=== PATIENT | male | born 1995 | race Caucasian/White ===

== ENCOUNTER 2018-05-03 18:18 | Inpatient (IN) ==
[2018-05-03 19:23] LABS: Basophils % 0.7 %; Eosinophils # 0.1 K/mcL (0.0-0.6); Eosinophils % 2.4 %; Hemoglobin 6.8 g/dL (12.9-16.9); Immature Granulocytes % 0.3 % (0-4); Lymphocytes # 1.6 K/mcL (0.6-4.6); Lymphocytes % 27.9 %; Mean Corpuscular HGB Conc 26.2 g/dL (31.6-35.5); Mean Corpuscular Hemoglobin 17.3 pg (28.0-33.3); Mean Corpuscular Volume 66.2 fL (83.0-100.0); Monocytes # 0.3 K/mcL (0.0-1.3); Monocytes % 5.9 %; Neutrophils # 3.6 K/mcL (1.6-8.9); Platelet Count 152 K/mcL (140-400); Red Blood Count 3.93 M/mcL (4.19-5.50); Red Cell Distribution Width 21.1 % (11.5-14.5); Segmented Neutrophils % 62.8 %
[2018-05-03] MEDS ORDERED: 0.9 % Sodium Chloride 1,000 ML IVC ONE (19:24)
[2018-05-03 19:32] LABS: Hypochromasia Present (Not Present); Microcytosis Present (Not Present)
[2018-05-03 19:46] LABS: BUN/Creatinine Ratio 17 (6-26); Blood Urea Nitrogen 13 mg/dL (6-20); Calcium 9.1 mg/dL (8.6-10.3); Carbon Dioxide 24 mEq/L (23-29); Chloride 107 mEq/L (98-107); Glucose 109 mg/dL (70-105); Osmolality,Calculated 291 (280-300); Potassium 3.7 mEq/L (3.5-5.1); Sodium 140 mEq/L (136-145); eGFR For African Americans > 60 (> 60); eGFR For Non-African Americans > 60 (> 60)
[2018-05-03] MEDS ORDERED: Isovue-370 500 ML INFUS..BTL IV ONE (19:55)
[2018-05-03] MEDS ORDERED: 0.9 % Sodium Chloride 500 ML ONE (20:18)
--- NOTE | 2018-05-03 20:29 | Emergency Department Note ---
Disposition Clinical Impression: Acute urinary retention Anemia Qualifiers: Anemia type: unspecified type Qualified Code(s): D64.9 - Anemia, unspecified Disposition: Admitted As Inpatient Condition: Fair Referrals: Raiza Lentz CNP [Primary Care Provider] - Time of Disposition: 22:27 General Adult HPI - General Chief complaint: ED Recheck/Abnormal Lab/Rx Stated complaint: Low hemoglobin Time Seen by Provider: 05/03/18 18:26 Source: patient Mode of arrival: ambulatory Limitations: no limitations Nursing Notes Reviewed: Yes Vital Signs Reviewed: Yes - History of Present Illness HPI Narrative: Patient is a 22-year-old male who presents to [facility] ED with a chief complaint of low hemoglobin. States he had been in to the primary care's office today for possible urinary tract infection. We got some blood work and then called them saying his hemoglobin was 7.5. Mom states he has had about a week of difficulty with urination with urinary retention. Patient states his abdomen feels really full. Denies any nausea, vomiting, fever or chills. He does feel generally fatigued. He has never had any issues with bleeding in the past and has not required any blood transfusions previously. Past medical history significant for autism and depression. No new medications. Onset (ago): Just [employer] Pain Scale: 0 Improves with: nothing Worsens with: nothing Associated symptoms: Reports: weakness. Denies: confusion, chest pain, cough, fever/chills, malaise, nausea/vomiting, shortness of breath Treatments Prior to Arrival: none - Related Data Home Medications Medication Instructions Recorded Confirmed Albuterol Sulfate [Albuterol 2 puff IH Q4-6H PRN 05/03/18 05/03/18 Inhaler] Aripiprazole [Abilify] 5 mg PO DAILY 05/03/18 05/03/18 Methylphenidate HCl [Concerta] 18 mg PO DAILY 05/03/18 05/03/18 Omeprazole [PriLOSEC] 40 mg PO DAILY 05/03/18 05/03/18 Ondansetron ODT [Zofran ODT] 4 mg SL DAILY PRN 05/03/18 05/03/18 Sertraline [Zoloft] 200 mg PO DAILY 05/03/18 05/03/18 clonazePAM [Clonazepam] 0.5 mg PO BID 05/03/18 05/03/18 Allergies Allergy/AdvReac Type Severity Reaction Status Date / Time oxcarbazepine AdvReac See Verified 06/02/17 10:55 [From Pinky] Comments All systems ED: reviewed and negative except as stated. Past Medical History - Past Medical History Attestation: Yes The following information was validated with the patient. Source: patient Medical history: Reports: other Surgical history: Reports: non-contributory Psychiatric history: Reports: anxiety, ADHD - Social History Smoking Status: Never smoker Smokeless Tobacco Status: No Alcohol use: Reports: none Drug use: Reports: none Physical Exam - General Limitations: no limitations General appearance: alert, in no apparent distress - Head Head exam: atraumatic, normocephalic, normal inspection - Eye Eye exam: Present: normal appearance, PERRL, EOMI - ENT ENT exam: normal exam, normal oropharynx, mucous membranes moist - Neck Neck exam: Present: normal inspection, full ROM, trachea midline - Chest Chest inspection: Present: normal inspection, symmetric chest wall rise - Respiratory Respiratory exam: Present: normal lung sounds bilaterally - Cardiovascular Cardiovascular exam: Present: normal rhythm, tachycardia - Abdominal Exam Abdominal exam: Present: soft, tenderness, normal bowel sounds. Absent: distention, guarding, rebound, rigidity Abdominal tenderness: Present: diffuse, mild - Extremities Exam Extremities exam: Present: normal inspection, full ROM. Absent: tenderness, pedal edema - Back Exam Back exam: Present: normal inspection, full ROM. Absent: tenderness - Neurological Exam Neurological exam: Present: alert, oriented X3 - Psychiatric Psychiatric exam: Present: normal affect, normal mood - Skin Skin exam: Present: warm, dry, intact, normal color Course Course Narrative: Patient seen and examined. Low hemoglobin reported. We will repeat the lab work. Patient is mildly tachycardic on my examination. 1 L of IV fluids ordered. We will get a type and screen. We will do a rectal exam to check for rectal bleeding. Since patient has been having abdominal discomfort along with some urinary retention, we will go ahead and check a urine analysis and do a CT of his abdomen and pelvis with IV contrast. - Reevaluation(s) Reevaluation #1: Hemoccult negative. CT scan unremarkable. Hemoglobin of 6.8. We will send for crossmatch of 1 unit to be given. Due to patient's urinary retention, he was straight catheterized with 450 mL of urine returned. Urine analysis sent. Will admit for anemia workup. I discussed with the hospitalist Dr. Sweeney who has accepted patient for admission. He would also like iron studies as well as B12 and folate ordered. Time: 20:30 Vital Signs Temperature 98.8 F 05/03/18 18:22 Pulse Rate 92 05/03/18 18:22 Respiratory Rate 18 05/03/18 18:22 Blood Pressure 128/75 05/03/18 18:22 O2 Sat by Pulse Oximetry 98 05/03/18 18:22 Temperature 98.7 F 05/03/18 22:15 Pulse Rate 86 05/03/18 22:15 Respiratory Rate 16 05/03/18 22:15 Blood Pressure 146/72 05/03/18 22:15 O2 Sat by Pulse Oximetry 98 05/03/18 22:15 Oxygen Delivery Oxygen Delivery Room Air Medical Decision Making - Medical Records Medical records reviewed: Yes I reviewed the patient's medical records. - Lab Data Lab results reviewed: Yes I reviewed the patient's lab results. Result diagrams: 05/03/18 19:05 05/03/18 19:05 Lab Results 05/03/18 05/03/18 05/03/18 Range/Units 19:00 19:05 19:05 WBC 5.7 (4.3-11.1) K/mcL RBC 3.93 L (4.19-5.50) M/mcL Hgb 6.8 L (12.9-16.9) g/dL Hct 26.0 L (37.5-50.1) % MCV 66.2 L (83.0-100.0) fL MCH 17.3 L (28.0-33.3) pg MCHC 26.2 L (31.6-35.5) g/dL RDW 21.1 H (11.5-14.5) % Plt Count 152 (140-400) K/mcL MPV TNP Immature Gran % 0.3 (0-4) % Seg Neutrophils % 62.8 % Lymphocytes % 27.9 % Monocytes % 5.9 % Eosinophils % 2.4 % Basophils % 0.7 % Neutrophils # 3.6 (1.6-8.9) K/mcL Lymphocytes # 1.6 (0.6-4.6) K/mcL Monocytes # 0.3 (0.0-1.3) K/mcL Eosinophils # 0.1 (0.0-0.6) K/mcL Basophils # 0.0 (0.0-0.2) K/mcL Hypochromasia Present A (Not Present) Microcytosis Present A (Not Present) Sodium 140 (136-145) mEq/L Potassium 3.7 (3.5-5.1) mEq/L Chloride 107 (98-107) mEq/L Carbon Dioxide 24 (23-29) mEq/L BUN 13 (6-20) mg/dL Creatinine 0.78 (0.70-1.30) mg/dL Est GFR ( Amer) > 60 (> 60) Est GFR (Non-Af Amer) > 60 (> 60) BUN/Creatinine Ratio 17 (6-26) Glucose 109 H (70-105) mg/dL Calculated Osmolality 291 (280-300) Calcium 9.1 (8.6-10.3) mg/dL Iron 21 L (65-175) mcg/dL % Saturation 4 L (20-55) % Transferrin 384 H (203-362) mg/dL Vitamin B12 (250-1100) pg/mL Folate (3.0-16.0) ng/mL Urine Color (Yellow) Urine Clarity (Clear) Urine pH (5.0-8.0) pH Units Ur Specific [place] (1.010-1.025) Urine Protein (Neg-Trace) mg/dL Urine Glucose (UA) (Normal) mg/dL Urine Ketones (Negative) mg/dL Urine Blood (Negative) Urine Nitrite (Negative) Urine Bilirubin (Negative) Urine Urobilinogen (Normal) mg/dL Ur Leukocyte Esterase (Negative) Urine Microscopic RBC (0-3) per hpf Urine Microscopic WBC (0-3) per hpf Ur Squamous Epith Cells (None-Few) per lpf Urine Bacteria (None-Few) per hpf Hyaline Casts (None-Few) per lpf Ur Culture Indicated? (NO) Stool Occult Bld Scrn (Negative) Blood Type A NEGATIVE Antibody Screen NEGATIVE Crossmatch See Detail 05/03/18 05/03/18 05/03/18 Range/Units 20:00 20:54 20:56 WBC (4.3-11.1) K/mcL RBC (4.19-5.50) M/mcL Hgb (12.9-16.9) g/dL Hct (37.5-50.1) % MCV (83.0-100.0) fL MCH (28.0-33.3) pg MCHC (31.6-35.5) g/dL RDW (11.5-14.5) % Plt Count (140-400) K/mcL MPV Immature Gran % (0-4) % Seg Neutrophils % % Lymphocytes % % Monocytes % % Eosinophils % % Basophils % % Neutrophils # (1.6-8.9) K/mcL Lymphocytes # (0.6-4.6) K/mcL Monocytes # (0.0-1.3) K/mcL Eosinophils # (0.0-0.6) K/mcL Basophils # (0.0-0.2) K/mcL Hypochromasia (Not Present) Microcytosis (Not Present) Sodium (136-145) mEq/L Potassium (3.5-5.1) mEq/L Chloride (98-107) mEq/L Carbon Dioxide (23-29) mEq/L BUN (6-20) mg/dL Creatinine (0.70-1.30) mg/dL Est GFR ( Amer) (> 60) Est GFR (Non-Af Amer) (> 60) BUN/Creatinine Ratio (6-26) Glucose (70-105) mg/dL Calculated Osmolality (280-300) Calcium (8.6-10.3) mg/dL Iron (65-175) mcg/dL % Saturation (20-55) % Transferrin (203-362) mg/dL Vitamin B12 494 (250-1100) pg/mL Folate 16.3 H (3.0-16.0) ng/mL Urine Color Dark Yellow (Yellow) Urine Clarity Clear (Clear) Urine pH 6.5 (5.0-8.0) pH Units Ur Specific [place] > 1.030 H (1.010-1.025) Urine Protein Negative (Neg-Trace) mg/dL Urine Glucose (UA) Normal (Normal) mg/dL Urine Ketones Negative (Negative) mg/dL Urine Blood Negative (Negative) Urine Nitrite Positive A (Negative) Urine Bilirubin Negative (Negative) Urine Urobilinogen Normal (Normal) mg/dL Ur Leukocyte Esterase Negative (Negative) Urine Microscopic RBC 0-3 (0-3) per hpf Urine Microscopic WBC 0-3 (0-3) per hpf Ur Squamous Epith Cells None Seen (None-Few) per lpf Urine Bacteria None Seen (None-Few) per hpf Hyaline Casts None Seen (None-Few) per lpf Ur Culture Indicated? YES A (NO) Stool Occult Bld Scrn Negative (Negative) Blood Type Antibody Screen Crossmatch - Radiology Data Radiology results reviewed: Yes I reviewed the patient's radiology results. Abdomen/Pelvis CT 05/03/18 19:55 IMPRESSION: No definite acute finding in the abdomen or pelvis. Specifically, the appendix is normal. Mild fatty infiltration of the liver. Borderline hepatosplenomegaly. D/ / Timothy Dobbins MD / Timothy Dobbins MD Interpreting Provider: Timothy Dobbins MD
[2018-05-03] MEDS ORDERED: *HR* LORazepam 2 MG/ML VIAL IVP ONE (20:38)
[2018-05-03 21:11] LABS: Bilirubin,Urine Negative (Negative); Blood,Urine Negative (Negative); Clarity,Urine Clear (Clear); Glucose,Urine (UA) Normal (Normal); Ketones,Urine Negative (Negative); Leukocyte Esterase,Urine Negative (Negative); Nitrite,Urine Positive (Negative); PH,Urine 6.5 pH Units (5.0-8.0); Protein,Urine Negative (Neg-Trace); Specific Gravity,Urine > 1.030 (1.010-1.025); Urobilinogen,Urine Normal (Normal)
[2018-05-03 21:14] LABS: Bacteria,Urine None Seen per hpf (None-Few); Hyaline Casts,Urine None Seen per lpf (None-Few); RBC,Urine 0-3 per hpf (0-3); Squamous Epithelial Cell,Urine None Seen per lpf (None-Few); WBC,Urine 0-3 per hpf (0-3)
[2018-05-03 21:16] LABS: Color,Urine Dark Yellow (Yellow)
[2018-05-03 21:18] LABS: % Iron Saturation 4 % (20-55); Iron 21 mcg/dL (65-175); Transferrin 384 mg/dL (203-362)
--- NOTE | 2018-05-03 21:41 | Emergency Department Note ---
Disposition Clinical Impression: Acute urinary retention Anemia Qualifiers: Anemia type: unspecified type Qualified Code(s): D64.9 - Anemia, unspecified Disposition: Admitted As Inpatient Condition: Fair General Adult HPI - General Chief complaint: ED Recheck/Abnormal Lab/Rx Stated complaint: Low hemoglobin Time Seen by Provider: 05/03/18 18:26 Source: patient Mode of arrival: ambulatory Limitations: no limitations Nursing Notes Reviewed: Yes Vital Signs Reviewed: Yes - History of Present Illness Pain Scale: 0 Improves with: nothing Worsens with: nothing Associated symptoms: Reports: weakness. Denies: confusion, chest pain, cough, fever/chills, malaise, nausea/vomiting, shortness of breath Treatments Prior to Arrival: none - Related Data Home Medications Medication Instructions Recorded Confirmed Albuterol Sulfate [Albuterol 2 puff IH Q4-6H PRN 05/03/18 05/03/18 Inhaler] Aripiprazole [Abilify] 5 mg PO DAILY 05/03/18 05/03/18 Methylphenidate HCl [Concerta] 18 mg PO DAILY 05/03/18 05/03/18 Omeprazole [PriLOSEC] 40 mg PO DAILY 05/03/18 05/03/18 Ondansetron ODT [Zofran ODT] 4 mg SL DAILY PRN 05/03/18 05/03/18 Sertraline [Zoloft] 200 mg PO DAILY 05/03/18 05/03/18 clonazePAM [Clonazepam] 0.5 mg PO BID 05/03/18 05/03/18 Allergies Allergy/AdvReac Type Severity Reaction Status Date / Time oxcarbazepine AdvReac See Verified 06/02/17 10:55 [From Trileptal] Comments Past Medical History - Past Medical History Medical history: Reports: other Surgical history: Reports: non-contributory Psychiatric history: Reports: anxiety, ADHD - Social History Smoking Status: Never smoker Smokeless Tobacco Status: No Alcohol use: Reports: none Drug use: Reports: none Physical Exam - General Limitations: no limitations General appearance: alert, in no apparent distress Course Vital Signs Temperature 98.8 F 05/03/18 18:22 Pulse Rate 92 05/03/18 18:22 Respiratory Rate 18 05/03/18 18:22 Blood Pressure 128/75 05/03/18 18:22 O2 Sat by Pulse Oximetry 98 05/03/18 18:22 Temperature 98.5 F 05/03/18 21:45 Pulse Rate 95 05/03/18 21:45 Respiratory Rate 16 05/03/18 21:45 Blood Pressure 110/62 05/03/18 21:45 O2 Sat by Pulse Oximetry 97 05/03/18 21:45 Oxygen Delivery Oxygen Delivery Room Air Medical Decision Making - Lab Data Result diagrams: 05/03/18 19:05 05/03/18 19:05 Lab Results 05/03/18 05/03/18 05/03/18 Range/Units 19:00 19:05 19:05 WBC 5.7 (4.3-11.1) K/mcL RBC 3.93 L (4.19-5.50) M/mcL Hgb 6.8 L (12.9-16.9) g/dL Hct 26.0 L (37.5-50.1) % MCV 66.2 L (83.0-100.0) fL MCH 17.3 L (28.0-33.3) pg MCHC 26.2 L (31.6-35.5) g/dL RDW 21.1 H (11.5-14.5) % Plt Count 152 (140-400) K/mcL MPV TNP Immature Gran % 0.3 (0-4) % Seg Neutrophils % 62.8 % Lymphocytes % 27.9 % Monocytes % 5.9 % Eosinophils % 2.4 % Basophils % 0.7 % Neutrophils # 3.6 (1.6-8.9) K/mcL Lymphocytes # 1.6 (0.6-4.6) K/mcL Monocytes # 0.3 (0.0-1.3) K/mcL Eosinophils # 0.1 (0.0-0.6) K/mcL Basophils # 0.0 (0.0-0.2) K/mcL Hypochromasia Present A (Not Present) Microcytosis Present A (Not Present) Sodium 140 (136-145) mEq/L Potassium 3.7 (3.5-5.1) mEq/L Chloride 107 (98-107) mEq/L Carbon Dioxide 24 (23-29) mEq/L BUN 13 (6-20) mg/dL Creatinine 0.78 (0.70-1.30) mg/dL Est GFR ( Amer) > 60 (> 60) Est GFR (Non-Af Amer) > 60 (> 60) BUN/Creatinine Ratio 17 (6-26) Glucose 109 H (70-105) mg/dL Calculated Osmolality 291 (280-300) Calcium 9.1 (8.6-10.3) mg/dL Iron 21 L (65-175) mcg/dL % Saturation 4 L (20-55) % Transferrin 384 H (203-362) mg/dL Urine Color (Yellow) Urine Clarity (Clear) Urine pH (5.0-8.0) pH Units Ur Specific [place] (1.010-1.025) Urine Protein (Neg-Trace) mg/dL Urine Glucose (UA) (Normal) mg/dL Urine Ketones (Negative) mg/dL Urine Blood (Negative) Urine Nitrite (Negative) Urine Bilirubin (Negative) Urine Urobilinogen (Normal) mg/dL Ur Leukocyte Esterase (Negative) Urine Microscopic RBC (0-3) per hpf Urine Microscopic WBC (0-3) per hpf Ur Squamous Epith Cells (None-Few) per lpf Urine Bacteria (None-Few) per hpf Hyaline Casts (None-Few) per lpf Ur Culture Indicated? (NO) Stool Occult Bld Scrn (Negative) Blood Type A NEGATIVE Antibody Screen NEGATIVE Crossmatch See Detail 05/03/18 05/03/18 Range/Units 20:00 20:54 WBC (4.3-11.1) K/mcL RBC (4.19-5.50) M/mcL Hgb (12.9-16.9) g/dL Hct (37.5-50.1) % MCV (83.0-100.0) fL MCH (28.0-33.3) pg MCHC (31.6-35.5) g/dL RDW (11.5-14.5) % Plt Count (140-400) K/mcL MPV Immature Gran % (0-4) % Seg Neutrophils % % Lymphocytes % % Monocytes % % Eosinophils % % Basophils % % Neutrophils # (1.6-8.9) K/mcL Lymphocytes # (0.6-4.6) K/mcL Monocytes # (0.0-1.3) K/mcL Eosinophils # (0.0-0.6) K/mcL Basophils # (0.0-0.2) K/mcL Hypochromasia (Not Present) Microcytosis (Not Present) Sodium (136-145) mEq/L Potassium (3.5-5.1) mEq/L Chloride (98-107) mEq/L Carbon Dioxide (23-29) mEq/L BUN (6-20) mg/dL Creatinine (0.70-1.30) mg/dL Est GFR ( Amer) (> 60) Est GFR (Non-Af Amer) (> 60) BUN/Creatinine Ratio (6-26) Glucose (70-105) mg/dL Calculated Osmolality (280-300) Calcium (8.6-10.3) mg/dL Iron (65-175) mcg/dL % Saturation (20-55) % Transferrin (203-362) mg/dL Urine Color Dark Yellow (Yellow) Urine Clarity Clear (Clear) Urine pH 6.5 (5.0-8.0) pH Units Ur Specific [place] > 1.030 H (1.010-1.025) Urine Protein Negative (Neg-Trace) mg/dL Urine Glucose (UA) Normal (Normal) mg/dL Urine Ketones Negative (Negative) mg/dL Urine Blood Negative (Negative) Urine Nitrite Positive A (Negative) Urine Bilirubin Negative (Negative) Urine Urobilinogen Normal (Normal) mg/dL Ur Leukocyte Esterase Negative (Negative) Urine Microscopic RBC 0-3 (0-3) per hpf Urine Microscopic WBC 0-3 (0-3) per hpf Ur Squamous Epith Cells None Seen (None-Few) per lpf Urine Bacteria None Seen (None-Few) per hpf Hyaline Casts None Seen (None-Few) per lpf Ur Culture Indicated? YES A (NO) Stool Occult Bld Scrn Negative (Negative) Blood Type Antibody Screen Crossmatch Critical Care Time Critical Care Time: Yes Total Critical Care Time: 35 Attestation: Critical care performed: Time is exclusive of separately billable procedures. Time includes: direct patient care, patient reassessment, coordination of patient care, interpretation of data (laboratory data, radiology data, and respiratory data), review of patient's medical records, medical consultation and documentation of patient care. Procedures included in critical care time: Procedures excluded from critical care time: Attestation Statement - Attestation Attestation: IJakob MD, personally evaluated this patient and discussed their management with the resident physician. I reviewed the resident's note and agree with the documented findings, medical decision making, and plan of care. 22-year-old male presents to the emergency department for a low hemoglobin. Patient has had some pelvic and lower abdominal pressure and difficulty with urination recently. He saw his PCP today who obtained some lab work and he was found to have a hemoglobin of 7.5 no prior history of anemia. No obvious bleeding sources. No gross hematuria. No melena, hematemesis, or hematochezia. No abnormal bleeding or bruising. On examination patient is a well-developed obese young male in no acute distress. He is alert and oriented 3. There is no cyanosis or diaphoresis. Breath sounds are clear and equal bilaterally. Heart regular rate and rhythm. Abdomen is soft with normal bowel sounds. Mild suprapubic and lower abdominal tenderness. No numbness. Labs reviewed. Hemoglobin here 6.8. CT of the abdomen and pelvis shows no acute abnormality. Transfusion of packed red blood cells was initiated here in the emergency department. The hospitalist, Dr. Sweeney, was consulted and accepted admission of the patient.
[2018-05-03 21:56] LABS: Folate 16.3 ng/mL (3.0-16.0)
[2018-05-03] MEDS ORDERED: Acetaminophen 325 MG TABLET PO PRN (22:36)
[2018-05-03] MEDS ORDERED: Naloxone 0.4 MG/ML INJ IVP PRN (22:36)
--- NOTE | 2018-05-04 00:02 | Internal Med History&Physical ---
Date of Encounter: 05/04/18 Time of Encounter: 21:30 Internal Medicine - H&P: HPI Admitted From: Home Plans for Post Hospital Care: Home History of present illness: Mr. Robles is a 22 year old male Patient presented to his primary care physician earlier today because he has had increased frequency of urination, but difficulty with voiding. He has also been complaining of lower abdominal pain for the last few days. He describes the pain as pressure but does not have burning when he does urinate. Lab work performed at the patient's PCP showed a hemoglobin level of 7.5. He was notified and recommended to be taken to the emergency room for further evaluation. He has no known history of bleeding disorders, and he has never had history with anemia. He denies family history of anemia as well. His mother is at bedside who confirmed this. He denies nausea, but has had vomiting about a week ago but denies there being any sign of blood in his vomit. He currently is not nauseous denies diarrhea and constipation denies bloody bowel movements and denies chest pain. In the ER bladder scan performed showed that he was retaining 450 mL of urine, straight catheter was performed and his abdominal pain improved. The urine was sent for urinalysis, and it was negative for blood and leukocytic esterase as well as bacteria but was positive for nitrites. Rectal exam performed in the emergency room was also negative for blood. Repeat CBC in the ER showed a hemoglobin of 6.8 with MCV of 66.2 and red cell distribution width of 21.1. Autonomic cytology indicated microcytosis and hypochromasia. Peripheral smear on the sample will be performed on Sunday as pathology is not available over the weekend. Patient was typed and screened and 1 unit of PRBCs was ordered and transfusion was initiated. He will be admitted for anemia workup and treatment for his possible urinary tract infection. Past Med Surg Social Fam HX - Past Medical History Medical history: other Additional medical history: autism, hiatal hernia, depression, anxiety, adhd. Psychiatric history: anxiety, ADHD - Past Surgical History Surgical History: non-contributory Additional surgical history: tonsils and adnoids, hiatal hernia that hasn't been operated on - Social History Smoking Status: Never smoker Smokeless Tobacco Status: No Alcohol use: none Drug use: none Internal Medicine - H&P: Meds Albuterol Sulfate [Albuterol Inhaler] 2 puff IH Q4-6H PRN 05/03/18 [History] Aripiprazole [Abilify] 5 mg PO DAILY 05/03/18 [History] Methylphenidate HCl [Concerta] 18 mg PO DAILY 05/03/18 [History] Omeprazole [PriLOSEC] 40 mg PO DAILY 05/03/18 [History] Ondansetron ODT [Zofran ODT] 4 mg SL DAILY PRN 05/03/18 [History] Sertraline [Zoloft] 200 mg PO DAILY 05/03/18 [History] clonazePAM [Clonazepam] 0.5 mg PO BID 05/03/18 [History] 3 Allergy/AdvReac Type Severity Reaction Status Date / Time oxcarbazepine AdvReac See Verified 06/02/17 10:55 [From Trileptal] Comments All Systems PM: A 10-system review of systems was performed and is negative for pertinent findings except as documented above in the HPI. - Constitutional Vitals: Temp Pulse Resp BP Pulse Ox 98.9 F 95 16 129/69 98 05/03/18 23:39 05/03/18 23:39 05/03/18 23:39 05/03/18 23:39 05/03/18 23:39 General appearance: Present: A&O X 3, pleasant, no acute distress - Head Head exam: Present: normal inspection - Eye Eye exam: Present: EOMI, normal appearance - Respiratory Respiratory exam: Present: CTAB. Absent: respiratory distress, wheezes - Cardiovascular Cardiovascular exam: Present: RRR. Absent: diastolic murmur, systolic murmur - GI/Abdominal GI/Abdominal exam: Present: normal bowel sounds. Absent: distended, tenderness - Extremities Exam Extremities exam: Present: full ROM, warm. Absent: tenderness - Neurological Exam Neurological exam: Present: oriented X3, no focal deficits, strengths equal and symetr throughout. Absent: speech deficit - Skin Skin exam: Present: dry, warm. Absent: erythema, petechiae, rash Internal Med - H&P Results - Labs CBC & Chem 7: 05/04/18 04:52 05/04/18 04:52 - Assessment and plan (1) Anemia Current Visit: Yes Status: Acute Assessment and plan: No known history of anemia, no obvious signs of bleeding. Preliminary iron studies show low iron and low MCV. Could be related to iron deficiency. Awaiting remaining iron studies. Negative stool blood test, no blood in urine. No recent injury. Follow up iron studies Transfused 1 unit pRBCs, rechecking cbc in the morning. Consider additional pRBCs if not improving. Follow up peripheral smear. Qualifiers: Anemia type: iron deficiency Qualified Code(s): D50.9 - Iron deficiency anemia, unspecified (2) Acute urinary retention Current Visit: Yes Status: Acute Assessment and plan: Likely secondary to urinary tract infection. Improved after straight cath in ER , 450ml out. Monitor ins and outs. Urine culture sent, follow up results. Start ceftriaxone, as nitrites were positive. Repeat bladder scan if low urine output. (3) Urinary tract infection Current Visit: Yes Status: Acute Assessment and plan: Likely cause of urinary retention. Cultures pending. Start ceftriaxone. Monitor vitals. Qualifiers: Qualified Code(s): N39.0 - Urinary tract infection, site not specified (4) Autism Current Visit: Yes Status: Acute Assessment and plan: Stable, no change in management. (5) Thrombocytopenia Current Visit: Yes Status: Acute Assessment and plan: Patient's repeat labs in the morning show low platelets of 93, down from 152. Patient did not receive a dose of heparin last night. This occurred after a transfusion, could be lab error, as we would not expect this result after a transfusion. Hemoglobin did improve however. Recheck with additional cbc draw today. (6) DVT prophylaxis Current Visit: Yes Status: Acute Assessment and plan: SCDs - Time Spent With Patient Total time spent is greater than 50% in coordination of care (as documented) at patient's floor/unit and/or counseling patient: Greater than 35 minutes
[2018-05-04] MEDS: cefTRIAXone 1,000 MG in Water for inj. (sterile) 20 ML 10 ML IVP SCH ×2 (02:44→08:30)
[2018-05-04 05:15] LABS: Hematocrit 25.9 % (37.5-50.1); Immature Granulocytes % 0.2 % (0-4)
[2018-05-04 05:16] LABS: Hemoglobin 7.1 g/dL (12.9-16.9); Mean Corpuscular HGB Conc 27.4 g/dL (31.6-35.5); Mean Corpuscular Hemoglobin 18.6 pg (28.0-33.3); Red Blood Count 3.81 M/mcL (4.19-5.50); Red Cell Distribution Width 21.2 % (11.5-14.5); Segmented Neutrophils % 55.7 %
[2018-05-04 05:17] LABS: Basophils % 0.6 %; Eosinophils # 0.1 K/mcL (0.0-0.6); Eosinophils % 1.8 %; Lymphocytes # 1.7 K/mcL (0.6-4.6); Lymphocytes % 34.2 %; Monocytes # 0.4 K/mcL (0.0-1.3); Monocytes % 7.5 %
[2018-05-04 05:26] LABS: BUN/Creatinine Ratio 13 (6-26); Blood Urea Nitrogen 9 mg/dL (6-20); Calcium 8.9 mg/dL (8.6-10.3); Carbon Dioxide 22 mEq/L (23-29); Chloride 110 mEq/L (98-107); Glucose 94 mg/dL (70-105); Osmolality,Calculated 288 (280-300); Potassium 3.8 mEq/L (3.5-5.1); Sodium 140 mEq/L (136-145); eGFR For African Americans > 60 (> 60); eGFR For Non-African Americans > 60 (> 60)
[2018-05-04 05:27] LABS: Neutrophils # 2.7 K/mcL (1.6-8.9); Platelet Count 93 K/mcL (140-400)
[2018-05-04] MEDS ORDERED: *HR* Heparin 5,000 UNIT/ML VIAL SQ SCH (06:00)
[2018-05-04 06:03] LABS: Anisocytosis 2+ (Not Present); Hypochromasia Present (Not Present); Microcytosis Present (Not Present); Platelet Estimate Decreased (Normal); Poikilocytosis 1+ (Not Present)
[2018-05-04 06:05] LABS: Ferritin < 8 ng/mL (20-250)
[2018-05-04 07:19] LABS: Basophils % 0.7 %; Eosinophils # 0.1 K/mcL (0.0-0.6); Eosinophils % 1.6 %; Hematocrit 26.5 % (37.5-50.1); Hemoglobin 7.1 g/dL (12.9-16.9); Immature Granulocytes % 0.5 % (0-4); Mean Corpuscular HGB Conc 26.8 g/dL (31.6-35.5); Mean Corpuscular Hemoglobin 17.9 pg (28.0-33.3); Mean Corpuscular Volume 66.8 fL (83.0-100.0); Monocytes # 0.4 K/mcL (0.0-1.3); Monocytes % 7.1 %; Neutrophils # 2.9 K/mcL (1.6-8.9); Platelet Count 117 K/mcL (140-400); Red Blood Count 3.97 M/mcL (4.19-5.50); Red Cell Distribution Width 21.8 % (11.5-14.5); Segmented Neutrophils % 53.1 %
[2018-05-04 07:57] LABS: Anisocytosis 1+ (Not Present); Hypochromasia Present (Not Present); Microcytosis Present (Not Present); Platelet Estimate Decreased (Normal); Polychromasia 1+ (Not Present)
[2018-05-04] MEDS ORDERED: Iron Polysaccharide Complex 150 MG CAPSULE PO SCH (09:00)
[2018-05-04] MEDS ORDERED: Iron Sucrose Complex 400 MG in 0.9 % Sodium Chloride 250 ML IVPB ONE (10:39)
[2018-05-04 10:55] VITALS: BP 114/73
--- NOTE | 2018-05-04 11:11 | Internal Med Progress Note ---
Date of Encounter: 05/04/18 Time of Encounter: 11:00 - Assessment and plan (1) Iron deficiency anemia Current Visit: Yes Status: Acute Assessment and plan: Hemoglobin on admission noted to be 6.8. Lab work revealed severe iron deficiency anemia. Denies GI bleed. Stool occult blood negative. Transfuse venofer per heme recs, outpatient follow up with hematology. GI recs appreciated as etiology of iron deficiency may be malabsorption. Transfused one unit of prbc overnight Qualifiers: Qualified Code(s): D50.9 - Iron deficiency anemia, unspecified (2) Urinary tract infection Current Visit: Yes Status: Acute Assessment and plan: Continue ceftriaxone. Symptoms improved Qualifiers: Qualified Code(s): N39.0 - Urinary tract infection, site not specified (3) Acute urinary retention Current Visit: Yes Status: Acute Assessment and plan: Resolved (4) DVT prophylaxis Current Visit: Yes Status: Acute Assessment and plan: Continue scd - Time Spent With Patient Total time spent is greater than 50% in coordination of care (as documented) at patient's floor/unit and/or counseling patient: - Subjective Interval history: N acute events overnight - Constitutional Vitals: Temp Pulse Resp BP Pulse Ox 97.9 F 89 16 114/73 98 05/04/18 10:53 05/04/18 10:53 05/04/18 10:53 05/04/18 10:53 05/04/18 10:53 General appearance: Present: A&O X 3, pleasant, no acute distress - Head Head exam: Present: atraumatic, normocephalic - Eye Eye exam: Present: PERRL, conjuntiva pink, sclera anicteric Pupils: Present: PERRL - Neck Neck exam general surgery: Present: supple, trachea midline. Absent: lymphadenopathy - Respiratory Respiratory exam: Present: CTAB. Absent: accessory muscle use, rales, rhonchi, wheezes - Cardiovascular Cardiovascular exam: Present: RRR, +S1, +S2. Absent: diastolic murmur, gallop, rubs, systolic murmur - GI/Abdominal GI/Abdominal exam: Present: normal bowel sounds, soft, no peritoneal signs. Absent: distended, tenderness - Extremities Exam Extremities exam: Present: warm, radial pulses palpable and symmetrical. Absent : calf tenderness, cyanotic, pedal edema - Neurological Exam Neurological exam: Present: CN II-XII intact, oriented X3, no focal deficits. Absent: pronater drift, facial droop, speech deficit - Skin Skin exam: Present: dry, intact Internal Medicine: Result - Labs CBC & Chem 7: 05/04/18 06:54 05/04/18 04:52 Labs: Short CBC 05/04/18 05/04/18 Range/Units 04:52 06:54 WBC 4.9 5.5 (4.3-11.1) K/mcL Hgb 7.1 L 7.1 L (12.9-16.9) g/dL Hct 25.9 L 26.5 L (37.5-50.1) % Plt Count 93 L 117 L (140-400) K/mcL Neutrophils # 2.7 2.9 (1.6-8.9) K/mcL BMP 05/04/18 04:52 Sodium 140 Potassium 3.8 Chloride 110 H Carbon Dioxide 22 L BUN 9 Creatinine 0.67 L Glucose 94 Calcium 8.9 - VTE Documentation of Mechanical Device: Intermittent pneumatic compression device Consult Discharge Plan - Plan Referrals: Raiza Lentz, [facility] [Primary Care Provider] - Prescriptions: Cefdinir [Omnicef] 300 mg PO BID #6 capsule Docusate [Colace] 100 mg PO BID PRN #60 capsule PRN Reason: Constipation Ferrous Sulfate 325 mg PO BIDWM #60 tablet
[2018-05-04] MEDS ORDERED: Ondansetron ODT 4 MG TAB.RAPDIS SL PRN (11:53)
[2018-05-04] MEDS ORDERED: clonazePAM 0.5 MG TABLET PO SCH (12:00)
--- NOTE | 2018-05-04 12:29 | Gastroenterology Consult Note ---
Date of Encounter: 05/04/18 Time of Encounter: 12:00 - Assessment and plan (1) AILYN (iron deficiency anemia) Current Visit: Yes Status: Acute Assessment and plan: Severe Iron deficiency anemia with low MCV denies any overt bleeding. Scope done about 5 years ago at [facility]. GI symptoms that are concerning for IBS but rule out celiac disease. Need an EGD and colonoscopy but he wants to have that done as an outpatient as per patient he cannot stay in the hospital any longer. He will be scheduled to have scopes done as an outpatient. Qualifiers: Qualified Code(s): D50.9 - Iron deficiency anemia, unspecified (2) Autism Current Visit: Yes Status: Chronic Assessment and plan: Currently on many medications - Time Spent With Patient Total time spent is greater than 50% in coordination of care (as documented) at patient's floor/unit and/or counseling patient: GI History of Present Illness - Data of Consult Requesting Physician: Sarita Sweeney MD - Consult Narrative Reason for consult: Iron Deficiency anemia History of present illness: Mr. Robles is a 22 year old male with a history of autism and I was asked to see him because of severe iron deficiency anemia. He has not been admitted with urinary symptoms with difficulty urination. On routine workup patient was found to be severely iron deficient so was admitted and has been given blood transfusion currently is getting IV iron denies any blood in the urine or in the stool. Patient does have a history of vomiting blood about 4-5 years ago at that time he had a full workup done at the [facility] with the EGD and colonoscopy and those studies were unremarkable. Per patient/mom patient always had a problem with his bowel he goes between episode of constipation and diarrhea in after he eats he has to go to the bathroom immediately. Does complain of bloating also. Denies any history of celiac in the past Past Med Surg Social Fam HX - Past Medical History Medical history: other Additional medical history: autism, hiatal hernia, depression, anxiety, adhd. Psychiatric history: anxiety, ADHD - Past Surgical History Surgical History: non-contributory Additional surgical history: tonsils and adnoids, hiatal hernia that hasn't been operated on - Social History Smoking Status: Never smoker Smokeless Tobacco Status: No Alcohol use: none Drug use: none Review of Systems: GI: as per [place] GENERAL: denies fever, has some chills, complaining of generalized fatigue EYES: denies yellow discoloration ENT: denies pain with swallowing or difficulty swallowing CARDIO: denies chest pain, palpitations RESP: No Shortness of breath with exertion : Per history of present illness NEURO: denies any weakness HEME: Denies any bruising MS: per mom he feels fatigued all the time and most the time he sleeps DERM: denies rash or itching PSYCH: History of autism - Constitutional Vitals: Temp Pulse Resp BP Pulse Ox 97.9 F 89 16 114/73 98 05/04/18 10:53 05/04/18 10:53 05/04/18 10:53 05/04/18 10:53 05/04/18 10:53 CONSTITUTIONAL:~alert, no acute distress.~HEAD:~normocephalic.~EYES:~no jaundice.~NECK:~no obvious swelling.~HEART:~regular rate and rhythm, no murmurs. ~LUNGS:~bilateral good air entry.~ABDOMEN:~non distended, soft, non tander, no masses pulpable, no organomegaly.~RECTAL EXAM:~Deferred.~EXTREMITIES:~no clubbing, cyanosis or edema.~SKIN:~no stigmata of chronic liver disease.~ NEUROLOGIC:~no obvious focal defect.~~~~ Results - Labs CBC & Chem 7: 05/04/18 06:54 05/04/18 04:52 Labs: Last Result Calcium 8.9 mg/dL (8.6-10.3) 05/04/18 04:52 Iron 21 mcg/dL (65-175) L 05/03/18 19:05 % Saturation 4 % (20-55) L 05/03/18 19:05 Transferrin 384 mg/dL (203-362) H 05/03/18 19:05 Ferritin < 8 ng/mL (20-250) L 05/04/18 04:52 Vitamin B12 494 pg/mL (250-1100) 05/03/18 20:56 Folate 16.3 ng/mL (3.0-16.0) H 05/03/18 20:56 Entire Visit Hgb 7.1 g/dL (12.9-16.9) L 05/04/18 06:54 Hct 26.5 % (37.5-50.1) L 05/04/18 06:54 Ferritin < 8 ng/mL (20-250) L 05/04/18 04:52 Folate 16.3 ng/mL (3.0-16.0) H 05/03/18 20:56 Consult Discharge Plan - Plan Referrals: Raiza Lentz, LESIA [Primary Care Provider] -
--- NOTE | 2018-05-04 13:04 | Discharge Summary ---
- NOTES TO OUTPATIENT PROVIDER Notes to Outpatient Provider: Follow up with GI and hematology for iron deficiency anemia Orders not resulted at time of discharge: Pending orders 05/04/18 04:52 BMP [Basic Metabolic Panel] AM 0400 C-Reactive Protein Routine Ferritin Routine 05/04/18 11:56 Celiac Disease Reflex Ideal Stat 05/05/18 04:00 Basic Metabolic Panel AM 0400 CBC [Complete Blood Count] [HEME] AM 0400 05/06/18 04:00 Basic Metabolic Panel AM 0400 CBC [Complete Blood Count] [HEME] AM 0400 05/07/18 04:00 Basic Metabolic Panel AM 0400 CBC [Complete Blood Count] [HEME] AM 0400 05/08/18 04:00 Basic Metabolic Panel AM 0400 CBC [Complete Blood Count] [HEME] AM 0400 05/09/18 04:00 Basic Metabolic Panel AM 0400 CBC [Complete Blood Count] [HEME] AM 0400 05/10/18 04:00 Basic Metabolic Panel AM 0400 CBC [Complete Blood Count] [HEME] AM 0400 Date of Encounter: 05/04/18 Time of Encounter: 13:00 - Discharge Diagnosis (1) Iron deficiency anemia Priority: Primary Status: Acute Assessment and Plan: 22 year old male patient presented to his primary care physician earlier today because he has had increased frequency of urination, but difficulty with voiding. He has also been complaining of lower abdominal pain for the last few days. He describes the pain as pressure but does not have burning when he does urinate. Lab work performed at the patient's PCP showed a hemoglobin level of 7.5. He was notified and recommended to be taken to the emergency room for further evaluation. He has no known history of bleeding disorders, and he has never had history with anemia.Hemoglobin on admission noted to be 6.8. Lab work revealed severe iron deficiency anemia. Denies GI bleed. Stool occult blood negative. He was assessed with UTI and acute anemia. He was started on ceftriaxone for his UTI and will complete a course of cefdinir outpatient. For his anemia, workup came back positive for dsevere iron deficiency anemia. He got one unit of pRBC and one unit of bvenofer. He was seen by GI who recommended outpatient colonoscopy per patient preference. He will follow up outpatient with hematology as well. With a sooner than anticipated recovery, he was discharged in a stable condition Qualifiers: Qualified Code(s): D50.9 - Iron deficiency anemia, unspecified (2) Urinary tract infection Priority: Secondary Status: Acute Qualifiers: Urinary tract infection type: acute cystitis Qualified Code(s): N30.00 - Acute cystitis without hematuria (3) Acute urinary retention Priority: Secondary Status: Acute (4) DVT prophylaxis Priority: Secondary Status: Acute Hospital course: Mr. Robles is a 22 year old male - Time Spent with Patient Total time spent providing and/or coordinating discharge services: - Discharge Medications Prescriptions: Cefdinir [Omnicef] 300 mg PO BID #6 capsule Docusate [Colace] 100 mg PO BID PRN #60 capsule PRN Reason: Constipation Ferrous Sulfate 325 mg PO BIDWM #60 tablet Home Medications: Albuterol Sulfate [Albuterol Inhaler] 2 puff IH Q4-6H PRN 05/03/18 [History] Aripiprazole [Abilify] 5 mg PO DAILY 05/03/18 [History] Methylphenidate HCl [Concerta] 18 mg PO DAILY 05/03/18 [History] Omeprazole [PriLOSEC] 40 mg PO DAILY 05/03/18 [History] Ondansetron ODT [Zofran ODT] 4 mg SL DAILY PRN 05/03/18 [History] Sertraline [Zoloft] 200 mg PO DAILY 05/03/18 [History] clonazePAM [Clonazepam] 0.5 mg PO BID 05/03/18 [History] Cefdinir [Omnicef] 300 mg PO BID #6 capsule 05/04/18 [Rx] Docusate [Colace] 100 mg PO BID PRN #60 capsule 05/04/18 [Rx] Ferrous Sulfate 325 mg PO BIDWM #60 tablet 05/04/18 [Rx] Allergies/Adverse Reactions: 3 Allergy/AdvReac Type Severity Reaction Status Date / Time oxcarbazepine AdvReac See Verified 06/02/17 10:55 [From Trileptal] Comments Date of admission: 05/03/18 22:36 Primary care physician: Raiza Lentz CNP Consults: 05/04/18 10:33 Consult to Oncology Hematology [CONS] Routine Consulting Provider: Sonal Powers Reason for Consult: severe anemia Call Completed: Yes 05/04/18 10:40 Consult to Gastroenterology [CONS] Routine Consulting Provider: Gastroenterology En[facility] Reason for Consult: iron deficiency anemia Call Completed: Yes - Constitutional Vitals: Temp Pulse Resp BP Pulse Ox 97.9 F 89 16 114/73 98 05/04/18 10:53 05/04/18 10:53 05/04/18 10:53 05/04/18 10:53 05/04/18 10:53 General appearance: Present: A&O X 3, pleasant, no acute distress - Head Head exam: Present: atraumatic, normocephalic - Eye Eye exam: Present: PERRL, conjuntiva pink, sclera anicteric Pupils: Present: PERRL - Neck Neck exam general surgery: Present: supple, trachea midline. Absent: lymphadenopathy - Respiratory Respiratory exam: Present: CTAB. Absent: accessory muscle use, rales, rhonchi, wheezes - Cardiovascular Cardiovascular exam: Present: RRR, +S1, +S2. Absent: diastolic murmur, gallop, rubs, systolic murmur - GI/Abdominal GI/Abdominal exam: Present: normal bowel sounds, soft, no peritoneal signs. Absent: distended, tenderness - Extremities Exam Extremities exam: Present: warm, radial pulses palpable and symmetrical. Absent : calf tenderness, cyanotic, pedal edema - Neurological Exam Neurological exam: Present: CN II-XII intact, oriented X3, no focal deficits. Absent: pronater drift, facial droop, speech deficit - Skin Skin exam: Present: dry, intact - Patient Status Disposition: Home, Self-Care Condition: Good - Discharge Instructions Follow Up With: Raiza Lentz CNP [Primary Care Provider] - - VTE Documentation of Mechanical Device: Intermittent pneumatic compression device
[2018-05-04 15:20] LABS: C-Reactive Protein < 5 mg/L (Less than 10)
[2018-05-04] MEDS ORDERED: ARIPiprazole 5 MG TABLET PO SCH (21:00)
[2018-05-05] MEDS ORDERED: METHYLPHENIDATE HCL 18 MG PO SCH (09:00)
[2018-05-08 08:20] LABS: Immunoglobulin A (CELIAC) 104 mg/dL (68-408)
== END 2018-05-04 15:21 | disposition home or self-care (01) | DRG 663 ==
LOC: 3ANU 18:18 → EMEROO 18:18 → 3ANU 21:50
PROVIDERS: ADMIT Internal Medicine; ATTEND Internal Medicine